=== PATIENT | female | born 1995 ===

== ENCOUNTER 2017-07-25 09:42 | Emergency (ER) | payer OTHER ==
[~2017-07-25] VITALS: Ht 157.5 cm; Wt 46.7 kg
== END 2017-07-25 18:48 | disposition home or self-care (01) ==
LOC: ER 09:42
DX: N30.80 Other cystitis without hematuria (principal); R10.84 Generalized abdominal pain; R10.2 Pelvic and perineal pain

== ENCOUNTER 2018-11-12 14:00 | Emergency (ER) | payer OTHER ==
[~2018-11-12] VITALS: Ht 157.5 cm; Wt 49.0 kg
== END 2018-11-12 19:03 | disposition home or self-care (01) ==
LOC: ER 14:00
DX: N39.0 Urinary tract infection, site not specified (principal)

== ENCOUNTER 2019-06-21 23:53 | Emergency (ER) | payer OTHER ==
[~2019-06-21] VITALS: Ht 157.5 cm; Wt 47.2 kg
[2019-06-22] MEDS ORDERED: PRENATALES (00:04)
[2019-06-22] MEDS ORDERED: ZOFRAN (00:04)
== END 2019-06-22 02:32 | disposition home or self-care (01) ==
LOC: ER 23:53
DX: O26.891 Other specified pregnancy related conditions, first trimester (principal); R10.2 Pelvic and perineal pain; Z34.01 Encounter for supervision of normal first pregnancy, first trimester

== ENCOUNTER 2019-11-12 10:35 | Inpatient (IN) | payer OTHER ==
[~2019-11-12] VITALS: Ht 157.5 cm; Wt 55.8 kg
[~2019-11-12 10:35] MED LIST: PRENATALES; ZOFRAN
[2019-11-15] MEDS ORDERED: PRENATAL + DHA1 EAC1 PO (07:48)
[2019-11-15] MEDS ORDERED: ONDANSETRON HCL4 MG (07:51)
[2019-11-15] MEDS ORDERED: NIFEDIPINE ER30 MG PO (08:50)
== END 2019-11-15 11:32 | disposition home or self-care (01) | DRG 833 ==
LOC: OBS/DEL 10:35 → LDR 11-13 14:45
PROVIDERS: ADMIT Specialist; ATTEND Specialist
PROC: 4A1HXFZ Monitoring of Products of Conception, Cardiac Rhythm, External Approach (ICD-10-PCS; principal; 2019-11-13)
DX: O60.03 Preterm labor without delivery, third trimester (principal); Z3A.34 34 weeks gestation of pregnancy

== ENCOUNTER 2019-12-10 11:31 | Inpatient (IN) | payer OTHER ==
[~2019-12-10] VITALS: Ht 154.9 cm; Wt 2.7 kg
[~2019-12-10 11:31] MED LIST changes: +NIFEDIPINE ER30 MG PO; +ONDANSETRON HCL4 MG; +PRENATAL + DHA1 EAC1 PO
[2019-12-20] MEDS ORDERED: FEOSOL325 MG PO (08:30)
== END 2019-12-20 13:24 | disposition home or self-care (01) | DRG 788 ==
LOC: O/R 12-17 08:00 → OB/GYN 12-17 08:00
PROVIDERS: ADMIT Specialist; ATTEND Specialist
PROC: 4A1HXCZ Monitoring of Products of Conception, Cardiac Rate, External Approach (ICD-10-PCS; 2019-12-17)
PROC: 10D00Z1 Extraction of Products of Conception, Low, Open Approach (ICD-10-PCS; principal; 2019-12-17 10:45)
DX: O64.1XX0 Obstructed labor due to breech presentation, not applicable or unspecified (principal); Z3A.39 39 weeks gestation of pregnancy; Z37.0 Single live birth